=== PATIENT | female | born 1945 | race Caucasian/White ===

== ENCOUNTER 2017-01-03 14:58 | Emergency (ER) | payer MEDICARE, OTHER | END 2017-01-03 16:49 | disposition home or self-care (01) | LOC: ER 14:58 | DX: S01.81XA Laceration without foreign body of other part of head, initial encounter (principal); W19.XXXA Unspecified fall, initial encounter; Y92.019 Unspecified place in single-family (private) house as the place of occurrence of the external cause; Z88.5 Allergy status to narcotic agent; Z79.4 Long term (current) use of insulin | CPT/HCPCS: 12011; 70450; 70486; 99070; 99283; 99283-25 ==